=== PATIENT | female | born 1985 | race Caucasian/White ===

== ENCOUNTER 2019-09-05 13:17 | Emergency (ER) | payer SELFPAY ==
[~2019-09-05] VITALS: Ht 165.1 cm; Wt 77.1 kg
[~2019-09-05 13:17] MED LIST: IBUPROFEN200 MG NG; LEVAQUIN500 MG PO; NORCO 5-325 TA1 EACH PO; OMEPRAZOLE20 MG PO
[2019-09-05] MEDS ORDERED: NORCO 5-325 TA1 EACH PO (15:26)
== END 2019-09-05 15:40 | disposition home or self-care (01) ==
LOC: ED 13:17
DX: N93.8 Other specified abnormal uterine and vaginal bleeding (principal); R07.89 Other chest pain; F17.210 Nicotine dependence, cigarettes, uncomplicated; Z88.0 Allergy status to penicillin
CPT/HCPCS: 71046; 80048; 81001; 84703; 85025; 99284-25

== ENCOUNTER 2020-05-17 17:06 | Observation (INO) | payer OTHER ==
[~2020-05-17] VITALS: Ht 165.1 cm; Wt 77.1 kg
--- NOTE | 2020-05-17 21:20 | NUR ---
PT ARRIVED VIA STRETCHER FROM ER FOR ADMIT TO ROOM [address] CHARLES, PT ABLE TO TRANSFER TO BED WITHOUT DIZZINESS, VAGINAL BLEEDING SCANT. NOTED SL X 2, RIGHT AND LEFT LOWER FOREARM.
--- NOTE | 2020-05-17 21:25 | NUR ---
HEMOGRAM DRAWN PER RN FROM RIGHT UNUSED SL AFTER 7ML WASTE, SL FLUSHES WELL AFTER BLOOD DRAWN, SITE INTACT.
--- NOTE | 2020-05-17 21:39 | NUR ---
HEMOGRAM RESULTS CALLED TO DR CHARLES, ORDERS RECEIVED TO REPEAT HEMOGRAM AT 0100 ON 05/18/20.
--- NOTE | 2020-05-17 22:15 | NUR ---
SCDS PLACED ON PT PER ORDER
--- NOTE | 2020-05-17 22:35 | NUR ---
PT MEDICATED PER REQUEST FOR FRONTAL HEADACE 01/20 WITH FENTANYL 50 MCG IV AND PHENERGAN 12.5 MG IV PER ORDER OF DR CHARLES, PT RESTING QUIETLY, REQUESTED TO CALL FOR ASSIST GETTING UP OUT OF BED, PT AGREES.
--- NOTE | 2020-05-17 22:35 | NUR ---
CORREEDCTION TO PREVIOUS ENTRY AT THIS TIME, FENTANYL AND PHENERGAN NOT GIVEN AT THIS TIME, PLEASE SEE CORRECTED NOTE.
--- NOTE | 2020-05-17 22:55 | NUR ---
PT MEDICATED WITH FENTANYL 50 MCG IV AT THIS TIME PER ORDER FOR C/O HEADACHE 01/20
--- NOTE | 2020-05-17 23:05 | NUR ---
PT MEDICATED WITH PHENERGAN 12.5MG SLOW IV PER ORDER OF DR CHARLES AND AGREEMENT OF PATIENT. IV SITE INTACT.
--- NOTE | 2020-05-18 01:15 | NUR ---
HEMOGRAM DRAWN PER RN PER RIGHT HAND SL, 5 ML OF BLOOD WASTED PRIOR TO SAMPLE COLLECTION.
--- NOTE | 2020-05-18 01:40 | NUR ---
REPORT RECEIVED FROM LAB ON HEMOGRAM, WBC 6.6, HGB 9.0, HCT 26.9, PLATLETS 119, RESULTS CALLED TO DR CHARLES, ORDERS RECEIVED FOR REPEAT HEMOGRAM AT 0600. UPDATED ON PT'S TEMP OF 99.9, PLAN TO MONITOR.
--- NOTE | 2020-05-18 02:35 | NUR ---
CORRECTION TO PREVIOUS NOTE MADE AT THIS TIME, PT NOT MEDICATED WITH FENTANYL AND PHENERGAN AT THIS TIME
--- NOTE | 2020-05-18 02:56 | NUR ---
PT RETURNED TO BED FROM VOIDING 500ML YELLOW URINE, NO REPORTS OF DIZZINESS WITH AMBULATION.
--- NOTE | 2020-05-18 02:57 | NUR ---
BP RECHECKED WITH PT TILTED TOWARD BACK, PT C/O POUNDING HEADACHE, REQUESTING MEDICATION, IV PATENT, VAGINAL BLEEDING SCANT, PERIPAD CHANGED, SIGN OTHER REMAINS ASLEEP ON COUCH.
--- NOTE | 2020-05-18 03:00 | NUR ---
REPORT GIVEN TO MARVEL RN, MARVEL STEVENS TO ASSUME CARE OF PT.
--- NOTE | 2020-05-18 03:38 | NUR ---
0335- PT MEDICATED WITH 50MCG fENTANYL AND 12.5MG PHENERGAN FOR C/O FRONTAL BASS 11/19
--- NOTE | 2020-05-18 04:07 | NUR ---
0407-pt resting, eyes closed after IV pain meds
--- NOTE | 2020-05-18 05:01 | NUR ---
Pt awake to nurse voice at bedside for vitals. Pt reports that her BASS has gone away. Pt goes back to resting eyes after vitals obtained.
--- NOTE | 2020-05-18 05:10 | OBS ---
[facility] [address], [place] [address] Signed DATE OF SERVICE: 05/17/20 HISTORY OF PRESENT ILLNESS: The patient is a 34-year-old female, 2, para 1, with an LMP in March, who presented to the emergency room this evening with heavy vaginal bleeding and clotting. The patient was hypotensive on arrival, but responded well to fluid resuscitation. She reports daily spotting and bleeding since her last period. She never considered she could be as a possibility. She was using no control. She has had some mild cramping over the last two months, but had severe cramping with the heavy bleeding. She reports that she currently is without insurance, which has kept her from using any control or seeking any care til now. REVIEW OF SYSTEMS: Otherwise negative except for the history of present illness. PAST SURGICAL HISTORY: in 2005. ILLNESSES: Positive for history of UTIs and kidney infection. Positive for mild anxiety. Positive for a history of ulcers and gastritis. Negative for hypertension, diabetes, murmur, asthma, liver problems, or migraines. HABITS: Negative for tobacco. Positive for occasional ETOH. Uses marijuana twice weekly. MEDICATIONS: Aspirin and ibuprofen for headaches as needed. ALLERGIES: Penicillin. PHYSICAL EXAMINATION: VITAL SIGNS: Blood pressure is 111/83, pulse 120. She is afebrile. GENERAL: She is a well-developed, well-nourished female, in no acute distress. She is alert and oriented. Affect is pleasant. HEART: Regular rate and rhythm without murmur. LUNGS: Clear. ABDOMEN: With active bowel sounds, soft. There is a palpable mass which is approximately 16 weeks size, which is firm and nontender. On pelvic exam, there is only a small amount of blood on her pad at this time. Bimanual not repeated. LABORATORY DATA: H and H was 10.5 and 31.1. Platelets were 297, WBCs 9.7. Chem panel normal. An Electronically Signed By: SYEDA MLILER MD 05/18/20 0510 PATIENT NAME: GUZMAN MEAD OBSERVATION NOTE DATE OF : [birth year] REPORT #: [id number] PHYSICIAN: SYEDA MILLER MD PCP: NO PRIMARY CARE PHYSICIAN REPORT IS CONFIDENTIAL AND NOT TO BE RELEASED WITHOUT AUTHORIZATION [facility] [address], [place] [address] Signed ultrasound revealed a live at 10 weeks with a large fibroid approximately 10 cm at the fundus. IMPRESSION: A 34-year-old female, 2, para 1, now at approximately 10 weeks gestation with a history of severe bleeding, though currently improved. I suspect she will go on to lose this and given the gestation, will need D and C to assure completion of the miscarriage. There is a small chance, however, that the may continue. I think close observation is the safest given the amount of bleeding thus far. The patient also has a uterine fibroid which is fairly large. She also has a history of marijuana use. PLAN: Admit to obs. Continue n.p.o., IV fluids, serial H and H. Syeda Miller MD PJW/MODL /[id number] Copies: ~ Electronically Signed By: SYEDA MILLER MD 05/18/20 0510 PATIENT NAME: GUZMAN MEAD OBSERVATION NOTE DATE OF : [birth year] REPORT #: [id number] PHYSICIAN: SYEDA MILLER MD PCP: NO PRIMARY CARE PHYSICIAN REPORT IS CONFIDENTIAL AND NOT TO BE RELEASED WITHOUT AUTHORIZATION
--- NOTE | 2020-05-18 06:32 | NUR ---
reviews labs and orders an ultrasound to be done.
--- NOTE | 2020-05-18 06:57 | NUR ---
US AT BEDSIDE ALONG WITH DR CHARLES. VIABLE FETUS OBSERVED. ORDERS FOR REPEAT LABS LATER THIS MORNING AND PT MAY HAVE A REGULAR DIET.
--- NOTE | 2020-05-18 07:01 | NUR ---
0700- PT UP TO BR AND VOIDS QS, PINK TINGED URINE.NO CLOTS
--- NOTE | 2020-05-18 07:32 | NUR ---
Dr Mliler on unit. MD aware of vitals and continued c/o headache, no new orders recd at this time. Breakfast ordered.
--- NOTE | 2020-05-18 09:02 | NUR ---
Pt resting in bed with eyes closed, pt opens eyes when this RN enters the room. Pt continues to c/o a headache. Pt reports using the restroom, denies any diziness with ambulation. Breakfast tray cleared. No further needs voiced.
--- NOTE | 2020-05-18 10:09 | NUR ---
LAB AT BEDSIDE FOR 1000 HEMOGRAM DRAW.
--- NOTE | 2020-05-18 10:56 | NUR ---
PT SLEEPING, WAKES WHEN RN SPEAKS TO HER. PT CONTINUES TO C/O OF HEADACHE RATING IT 8/10.
--- NOTE | 2020-05-18 11:03 | NUR ---
T/C to Dr Clifford MD updated on 1000 hemogram results, no new orders recd at this time.
--- NOTE | 2020-05-18 12:32 | NUR ---
PT SLEEPING, DID NOT DISTURB.
--- NOTE | 2020-05-18 13:15 | NUR ---
DR CHARLES AT PT'S BEDSIDE, DISCHARGE ORDERS RECD.
== END 2020-05-18 13:30 | disposition home or self-care (01) ==
LOC: ED 17:06 → FBC 17:07
PROVIDERS: ADMIT Obstetrics & Gynecology; ATTEND Obstetrics & Gynecology
DX: O20.0 Threatened abortion (principal); I95.9 Hypotension, unspecified; D64.9 Anemia, unspecified; Z88.0 Allergy status to penicillin; D25.9 Leiomyoma of uterus, unspecified; R51.9 Headache, unspecified; Z3A.10 10 weeks gestation of pregnancy; Z20.822 Contact with and (suspected) exposure to COVID-19
CPT/HCPCS: 36415; 76801; 76815; 80048; 84702; 84703; 85025; 85027; 86850; 86900; 86901; 96374; 96375; 96376; 99285-25; C9803; G0378; J2550; J3010; J7030; J7121; U0003

== ENCOUNTER 2020-09-29 07:00 | Day surgery (SDC) | payer OTHER ==
[~2020-09-29] VITALS: Ht 165.1 cm; Wt 90.9 kg
[~2020-09-29 07:00] MED LIST changes: +ADVIL200 M1 PO; +IRON325 M1 PO; +MAG-OXIDE400 MG PO; +PRENATA CHEWAB1 EACH PO; +TYLENOL325 MG PO
[2020-09-29] MEDS ORDERED: CLEOCIN HCL300 MG PO (07:56)
--- NOTE | 2020-09-29 08:28 | NUR ---
PT IN DARKENED RM. ALERT ORIENTED AND SUPPORTED BY HER B.FRIEND JASPREET. PT SEEMS A LITTLE ANXIOUS, JASPREET WILL LEAVE, WOULD LIKE A CALL WHEN TIME FOR DC. HILDA SARABIA IN TO CONTINUE PREP, GAVE BLESSING. ALSO GAVE UPDATED CONTACT INFO TO HILDA LEA. SHE ENTERED IN PTS' CHART.
--- NOTE | 2020-09-29 08:47 | NUR ---
COOL WASH CLOTH TO FOREHEAD PER REQUEST AND PT REPORTS SMALL AMOUNT OF NAUSEA. PT REPORTS 8/10 CRAMPING UPPER ABD PAIN, RN WILL NOTIFY HARRIS CUELLAR.
--- NOTE | 2020-09-29 11:58 | NUR ---
09/29/20 1158 Kate Roman 1152-PATIENT ARRIVED TO PACU ON 6L MASK NONAROUSABLE RR EVEN. SR. IVF INFUSING. 3LAP SITES TO ABDOMEN BANDAIDS CDI. EPPERSON CATHETER DRAINING YELLOW URINE. 1156-PATIENT AROUSING TO VERBAL STIMULI OPENING EYES. PATIENT VERY DROWSY NOT RESPONDING TO QUESTIONS DOZES BACK TO SLEEP.
--- NOTE | 2020-09-29 12:43 | NUR ---
1235 PT ARRIVED TO PACU ONM RA, PT ASLEEP AND WAKES EASILY TO VERBAL STIMULI. VSS. PT DENEIS PAIN AND NAUSEA. PT RESTING WITH CALL LIGHT WITHIN REACH. PLAN OF CARE DISCUSSED. 1240 MD AT BEDSIDE TALKED TO PT.
--- NOTE | 2020-09-29 13:44 | NUR ---
EXPLAINED IS TO PT. TOO SLEEPY
--- NOTE | 2020-09-29 14:00 | NUR ---
PATIENT APPEARS AWAKE, REQUESTING PHONE FROM BACK PACK. REPORTS PAIN WELL CONTROLLED. RAISED PATIENT IN BED AND PROVIDED SNACK. PATIENT REPORTS PAIN INCREASING. ENCOURAGED PATIENT TO EAT AND DRINK BEFORE ADMINISTRATION OF PAIN MEDICAITON TO MAKE SURE WOULD SIT WELL ON STOMACH.
--- NOTE | 2020-09-29 14:16 | NUR ---
PATIENT AWAKE REPORTS PAIN 7/10 TO ABDOMEN, REPORTS 6 IS A TOLERABLE LEVEL. DENIES PAIN OR NAUSEA. RR EVEN. PATIENT HAS EATEN CRACKERS AND APPLESAUCE. CALL LIGHT WITHIN REACH. PATIENT MEDICATED PER EMAR.
--- NOTE | 2020-09-29 14:33 | NUR ---
1430-PATIENT AWAKE DENIES NAUSEA REPORTS PAIN HAS DECREASED TO 4. EPPERSON CATHETER EMPTIED 200MLS YELLOW URINE. PATIENT REPORTS " TOLERABLE LEVEL OF PAIN IS 5". EPPERSON CATHETER REMOVED. 10CC SALINE.
--- NOTE | 2020-09-29 14:59 | NUR ---
7425-PATIENT SAT UP ON SIDE OF BED TEARFUL. PATIENT REPORTS "TEARFUL DUE TO UTERUS BEING GONE" PATIENT UP TO BATHROOM SBA VOIDED 25 ML YELLOW URINE. [place] PAD PLACED SMALL AMT OF DRAINAGE. PATIENT REPOSITIONED BACK IN BED AND EDUCATED ABOUT IS AND DEMONSTRATED. SCDS ON AND RESTING IN BED. CALL LIGHT WITHIN REACH
--- NOTE | 2020-09-29 15:06 | NUR ---
1505- MERIDA AT BEDSIDE TALKING TO PATIENT
--- NOTE | 2020-09-29 15:23 | NUR ---
1520-PATIENT AWAKE CONTINUES TO HAVE PAIN 6/10 MEDICATED PER EMAR. PATIENT GIVEN ICE PACK AND WATER. BOYFRIEND AT BEDSIDE GIVEN PRESCRIPTION FOR NORCO AND MOTRIN TO GO FILL.
--- NOTE | 2020-09-29 15:47 | NUR ---
1545-PATIENT UP TO BATHROOM VOIDED 100 MLS YELLOW URINE. PATIENT REPORTS "PAIN IS BETTER" REPORTS "READY TO GO HOME" DISCUSSED WITH PATIENT ABOUT USING CALL LIGHT WHEN BOYFRIEND RETURNS TO [place] HOME.
--- NOTE | 2020-10-05 17:32 | PATH ---
[facility] [address], [place] [address] Signed SPECIMEN(S): A CERVIX, UTERUS, TUBES FIBROIDS SPECIMEN SOURCE: A. CERVIX, UTERUS, TUBES FIBROIDS CLINICAL HISTORY: Intramural leiomyoma of uterus, abnormal uterine bleeding. FINAL PATHOLOGIC DIAGNOSIS: Uterus, cervix, and bilateral fallopian tubes, hysterectomy and bilateral salpingectomy: - Cervix: No histopathologic abnormality. - Endometrium: Proliferative endometrium. - Myometrium: Leiomyomas (2.2 cm in greatest dimension). - Serosa: No histopathologic abnormality. - Fallopian tubes: Adenomatoid tumor (2 mm), paratubal cysts. - No evidence of malignancy. COMMENT: The leiomyomas are mitotically active and cellular, with up to 5 mitoses seen per high-powered field. An area of ischemic type necrosis is present in one of the leiomyomas, however no tumor necrosis or cellular atypia is identified. Within one of the fallopian tubes is a well circumscribed proliferation of benign appearing tubules within fibrous stroma. Immunohistochemical stains (with appropriately staining controls) were performed. The cells are positive for Calretinin and WT1, confirm mesothelial origin. 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 As part of [facility]' Quality Improvement Program, this case was reviewed by another member of our pathology staff. NAL:cml:C2NR MICROSCOPIC EXAMINATION: Histologic sections of all submitted blocks are examined by light microscopy. These findings, together with the gross examination, support the pathologic diagnosis. GROSS DESCRIPTION: The specimen, labeled "SK, cervix, uterus, tubes and fibroid," is received in formalin and consists of fragmented uterus that aggregate measures 15.5 x 9.5 x PATIENT NAME: GUZMAN MEAD PATHOLOGY DATE OF : [birth year] REPORT #: [id number] PHYSICIAN: CHATA PATHOLOGY PCP: NO PRIMARY CARE PHYSICIAN REPORT IS CONFIDENTIAL AND NOT TO BE RELEASED WITHOUT AUTHORIZATION [facility] [address], [place] [address] Signed 4.3 cm. Serosal surface is pink-collado, smooth. The ectocervix measures 3.5 x 4.1 cm. It is pink-collado, focally congested. The uterus fragments together weigh 231 g. Sectioning through the cervix reveals pink-collado homogenous tissue. The endometrium is pink-collado, smooth. Sectioning through myometrium reveals two white, firm, well-defined nodules that measure 0.5 and 0.6 cm in greatest dimension. Sectioning through myometrium reveals ill-defined white-pink nodule that measures 1.5 cm in greatest dimension. It also shows a possible nodule that shows yellow-collado discoloration and measures 2.2 cm in greatest dimension. The remaining of the myometrium shows trabeculated surface. The myometrium measures 1.7 cm in thickness. The endometrium measures 0.1 cm in thickness. from the uterine fragments, within the container are two undesignated fallopian tubes. Both of them show fimbria and violaceous and smooth serosa. First fallopian tube measures 4.5 cm in length and 0.7 cm in diameter. Second fallopian tube measures 5.5 cm in length and 0.7 cm in diameter. Sectioning through both fallopian tubes is grossly unremarkable. Cassette summary: (A1) Cervix, loan servicing representative sections (A2) Endomyometrium, loan servicing representative sections (A3) Two well-defined and one ill-defined nodule, loan servicing representative sections (A4) Possible nodule, loan servicing representative section (A5) First fallopian tube, loan servicing representative sections (A6) Second fallopian tube, loan servicing representative sections JS (under the direct supervision of a pathologist) The Gross Description was prepared using a voice recognition system. The report was reviewed for accuracy; however, sound-alike word errors, addition and/or deletions may occur. If there is any question about this report, please contact Client Services. ADDITIONAL NOTES: Immunohistochemical and/or in situ hybridization studies were performed on this case with the appropriate positive controls that react as expected. This test was developed and its performance characteristics determined by [facility]. It has not been cleared or approved by the U.S. Food and Drug Administration. The FDA has determined that such clearance or approval is not necessary. This test is used for clinical purposes. It should not be regarded as investigational or for research. [facility] is certified under the Clinical Laboratory Improvement PATIENT NAME: GUZMAN MEAD PATHOLOGY DATE OF : [birth year] REPORT #: [id number] PHYSICIAN: CHATA PATHOLOGY PCP: NO PRIMARY CARE PHYSICIAN REPORT IS CONFIDENTIAL AND NOT TO BE RELEASED WITHOUT AUTHORIZATION [address] [address] Signed Amendments of 1988 (CLIA) as qualified to perform high complexity clinical laboratory testing. This assay has not been validated for specimens that have been decalcified. PERFORMING LABORATORY: The technical component was performed by [facility], [address] [place] [id number] (Circulation Representative: Sarah Silvestre MD; CLIA# [id number]). Professional interpretation was performed by [facility], [facility], [address] [place] [address] (CLIA# [id number]). Diagnostician: Daily Pierce MD Pathologist Electronically Signed 10/05/2020 Copies: ~ PATIENT NAME: GUZMAN MEAD PATHOLOGY DATE OF : [birth year] REPORT #: [id number] PHYSICIAN: CHATA PATHOLOGY PCP: NO PRIMARY CARE PHYSICIAN REPORT IS CONFIDENTIAL AND NOT TO BE RELEASED WITHOUT AUTHORIZATION
--- NOTE | 2020-10-06 22:23 | OR ---
[facility] [address], [place] [address] Signed DATE OF OPERATION: 09/29/2020 SURGEON: Jorge A Stokes DO PREOPERATIVE DIAGNOSES: 1. Fibroid uterus (large). 2. Abnormal uterine bleeding. POSTOPERATIVE DIAGNOSES: 1. Fibroid uterus (large). 2. Abnormal uterine bleeding. PROCEDURES PERFORMED: 1. Total laparoscopic hysterectomy of large uterus with fibroid utilizing the excite technique. 2. Bilateral salpingectomy. 3. Cystoscopy. TRANSPORTATION SPECIALIST: Katrina Ames DO. ANESTHESIA: General. ESTIMATED BLOOD LOSS: 50 mL. SPECIMEN: Uterus with large fibroid, cervix, bilateral fallopian tubes. IMPLANTS: Mcfadden catheter to dependent drainage. FINDINGS: Normal external genitalia with normal clitoris, urethral meatus, bilateral [place]'s, and Bartholin's. Normal vagina with excellent apical support. Normal cervix. On laparoscopy, large fibroid uterus with likely degenerative changes were noted during extracorporeal morcellation. Normal fallopian tubes and ovaries bilaterally. On cystoscopy, normal urethra and bilateral ureteral jets. Electronically Signed By: JORGE A STOKES DO 10/06/20 2223 PATIENT NAME: GUZMAN MEAD OPERATIVE REPORT DATE OF : 83 REPORT #: [id number] PHYSICIAN: JORGE A STOKES DO PCP: NO PRIMARY CARE PHYSICIAN REPORT IS CONFIDENTIAL AND NOT TO BE RELEASED WITHOUT AUTHORIZATION [facility] [address], [place] [address] Signed COMPLICATIONS: None. INDICATIONS: Ms. Mead is a very pleasant 34-year-old white female with a large fibroid uterus with a fibroid measuring 10.9 x 6.5 x 7.5 cm. Unfortunately, this fibroid caused a recent complication of , and the patient underwent medically indicated with [facility] in [place]. Since the patient has developed worsening abnormal bleeding and she desires to proceed with definitive treatment with total laparoscopic hysterectomy. Risks, benefits, and alternatives were discussed in detail with the patient. The patient understands and wished to proceed with the procedure. TECHNIQUE: The patient was taken to the operating room. A time-out was performed to confirm correct patient, correct procedure. General anesthesia was adequately established. The patient was prepped and draped in dorsal lithotomy position with feet in Yellofin stirrups. ICPs were on running. The patient received clindamycin 900 mg and aztreonam 2 g IV due to penicillin allergy. No heparin was indicated. A Mcfadden catheter was inserted. A weighted speculum was placed in the vagina and the anterior lip of the cervix grasped with an Allis clamp. The cervix was serially dilated using Hegar dilators and a VCare uterine manipulator was placed without difficulty. The surgeon's gloves were changed and attention was turned to the abdomen. The 2 cm below the umbilicus, a 4 cm curvilinear incision was made after injection with local anesthetic with epinephrine. The fascia was grasped with hemostats, elevated, and entered sharply. The fascia was tagged with sutures of 0 Vicryl and the peritoneum was entered bluntly. A Bill trocar was then placed and pneumoperitoneum was established. Survey of the abdomen and pelvis was performed demonstrating a right abnormal right upper quadrant, stomach and the pelvis. Large fibroid uterus. Normal fallopian tubes and ovaries. It was felt that this would be able to be accomplished laparoscopy and procedure continued. A 5 mm assist port was placed in left lower quadrant under direct visualization. An 8 mm expanding assist port was placed in the right abdomen under direct visualization without complication. The left fallopian tube was grasped at the fimbriated end, elevated, and divided along the mesosalpinx using the LigaSure device. The tube was amputated at the cornu and delivered through the trocar and sent to pathology for further evaluation. The right utero-ovarian ligament was fulgurated and divided with excellent hemostasis. The right round ligament was fulgurated and divided, and the leaves of the broad ligament were dissected. The process was repeated on the left side without difficulty. The fibroid was quite large and on the left midportion of the uterus. Careful dissection was performed along the posterior leaf of the broad ligament to the uterosacral ligaments and the peritoneum was dissected off the cervix posteriorly. The bladder flap was then created and pushed well below the vaginal cup. The left uterine vessels were fulgurated and divided with excellent hemostasis. The Electronically Signed By: JORGE A STOKES DO 10/06/20 2223 PATIENT NAME: GUZMAN MEAD OPERATIVE REPORT DATE OF : [birth year] REPORT #: [id number] PHYSICIAN: JORGE A STOKES DO PCP: NO PRIMARY CARE PHYSICIAN REPORT IS CONFIDENTIAL AND NOT TO BE RELEASED WITHOUT AUTHORIZATION [facility] [address], [place] [address] Signed process was repeated on the right with uterine vessels fulgurated and divided with excellent hemostasis. The uterus was blanched and decision was made to proceed with Sonicision colpotomy at 6 o'clock and followed the green edge of the cup in a clockwise manner to 12 o'clock. The process was repeated from 6 o'clock in a counter-clockwise manner to the 12 o'clock, amputating the uterus and cervix from the vagina. The cervix and uterus were then placed into the upper abdomen and the VCare uterine manipulator was removed. The vagina was stuffed with a wet lap in a glove to maintain pneumoperitoneum. Attention was then turned back to the abdomen. The cervix and uterus were placed back into the pelvis and a 15 EndoCatch bag was placed into the pelvis, carefully inserting the uterus and cervix into the bag. The bag was then brought through the umbilical port with excellent containment. An Larry O ring was then placed to hold the bag in place. The pneumoperitoneum was reduced and the uterus was morcellated in a contained extra corporal manner utilizing the excite technique with an #11 blade. Degenerative changes were noted of the fibroid. Once the uterus and fibroid were delivered through the umbilical incision. The 15 bag was removed and the Bill port was replaced. Attention was then turned to repair of the colpotomy. The edges of the vagina were grasped and reapproximated using Endostitch device with V-Loc suture with careful attention to incorporate the uterosacral ligaments and the vaginal epithelium with each bite. Excellent closure was noted with excellent apical support. A small amount of oozing was noted in the right broad ligament, this was carefully evaluated and made hemostatic with a LigaSure device. The pedicles and the broad ligament with excellent hemostasis noted. The pneumoperitoneum was reduced and hemostasis again was noted. Trocars were removed. Umbilical fascia was repaired using 0 Vicryl in a running nonlocked manner. Trocar sites were repaired using 4-0 Monocryl with excellent hemostasis and cosmesis. Attention was then turned to cystoscopy. The Mcfadden catheter was removed. A 7-degree cystoscope was placed in the urethral meatus and advanced under direct visualization into the bladder. Normal bladder, urethra, and bilateral ureteral jets were appreciated. The bladder was drained. Mcfadden catheter was reinserted. The patient was taken to PACU in good and stable condition. Sponge, needle, instrument count were correct x2 at the end the procedure. Dr. Ames was present and participated in all portions of the procedure. Jorge A Stokes DO JDW/MODL /[id number] Electronically Signed By: JORGE A STOKES DO 10/06/202222 PATIENT NAME: GUZMAN MEAD OPERATIVE REPORT DATE OF : [birth year] REPORT #: [id number] PHYSICIAN: JORGE A STOKES DO PCP: NO PRIMARY CARE PHYSICIAN REPORT IS CONFIDENTIAL AND NOT TO BE RELEASED WITHOUT AUTHORIZATION [facility] [address] [place] [address] Signed Copies: ~ Electronically Signed By: JORGE A STOKES DO 10/06/20 2223 PATIENT NAME: GUZMAN MEAD OPERATIVE REPORT DATE OF : [birth year] REPORT #: [id number] PHYSICIAN: JORGE A STOKES DO PCP: NO PRIMARY CARE PHYSICIAN REPORT IS CONFIDENTIAL AND NOT TO BE RELEASED WITHOUT AUTHORIZATION
== END 2020-09-29 16:32 | disposition home or self-care (01) ==
LOC: DS 07:00
PROVIDERS: ATTEND Obstetrics & Gynecology
PROC: 0UT94ZZ Resection of Uterus, Percutaneous Endoscopic Approach (ICD-10-PCS; principal; 2020-09-29 08:30)
DX: D25.1 Intramural leiomyoma of uterus (principal); D28.2 Benign neoplasm of uterine tubes and ligaments; N93.9 Abnormal uterine and vaginal bleeding, unspecified
CPT/HCPCS: 00840; 86850; 86900; 86901; 88307; 88341; 88342; J0131; J0330; J1100; J1885; J2250; J2405; J2704; J3010; J3475; J3490; J7121

== ENCOUNTER 2021-08-05 19:15 | Emergency (ER) | payer OTHER ==
[~2021-08-05] VITALS: Ht 165.1 cm; Wt 96.5 kg
[~2021-08-05 19:15] MED LIST changes: +CLEOCIN HCL300 MG PO
[2021-08-05] MEDS ORDERED: BUTALB-ACETAMI1 EAC2 PO (21:26)
== END 2021-08-05 21:38 | disposition home or self-care (01) ==
LOC: ED 19:15
DX: R51.9 Headache, unspecified (principal); Z88.0 Allergy status to penicillin; Z79.899 Other long term (current) drug therapy
CPT/HCPCS: 96374; 96375; 99283-25; J1200; J1885; J2765; J7030

== ENCOUNTER 2023-10-05 21:27 | Emergency (ER) | payer OTHER ==
[~2023-10-05] VITALS: Ht 160 cm; Wt 86.3 kg
[~2023-10-05 21:27] MED LIST changes: +BRAIN MIGHT-DH1 EACH PO; +BUSPIRONE HCL5 MG PO; +BUTALB-ACETAMI1 EAC2 PO; +FLOVENT DISKU250 MCG INH; +FLOVENT HFA10.6 GM INH; +HYDROCODON-ACE1 EA10 PO; +HYDROCODON-ACE1 EA11 PO; +LEVOFLOXACIN500 MG PO; +MONTELUKAST SOD10 MG PO; +PREDNISONE20 MG PO; +SERTRALINE HCL100 MG PO; +SUMATRIPTAN SUC25 MG PO; +TOPIRAMATE50 MG PO; +VENTOLIN HFA18 GM INH; +VIT C-ECHINACE1 EACH PO; +VITAMIN D350 MCG PO; +ZITHROMAX250 MG PO
--- OUTSIDE RECORDS SUMMARY | 2023-10-05 21:30 | XMS ---
PreManage Notification: GUZMAN MEAD Security Collateral Analyst Events No recent Security Events currently on file CRITERIA MET - [facility] - [facility] - 2 Visits in 30 Days CARE PROVIDERS -, [facility] Dentist: Poultry Trimmer [facility] PHONE: [phone] -, Toby- Dentist: Poultry Trimmer [facility] PHONE: [phone] [facility]: [facility] Current \F\ [facility] PHONE: [phone] Serena has no Care Guidelines for this patient. E.D. VISIT COUNT (12 MO.) [address] [facility] TOTAL 5 NOTE: Visits indicate total known visits. ED/UCC VISIT TRACKING (12 MO.) 10/05/2023 21:27 [facility] [place] TYPE: Emergency COMPLAINT: - DIFFICULTY BREATHING 09/07/2023 17:04 [facility] [place] TYPE: Emergency COMPLAINT: - RT FOOT PAIN DIAGNOSES: - Fall on same level from slipping, tripping and stumbling without subsequent striking against object, initial encounter - Nondisplaced fracture of fifth metatarsal bone, right foot, initial encounter for closed fracture - Pain in right foot 09/02/2023 21:42 [facility] [place] TYPE: Emergency COMPLAINT: - SHORTNESS OF BREATH DIAGNOSES: - Allergy status to penicillin - Elevated white blood cell count, unspecified - intermission coordinator (current) use of inhaled steroids - Other emt intermediate (current) drug therapy - Shortness of breath - Unspecified asthma with (acute) exacerbation 07/26/2023 18:33 [facility] [place] TYPE: Emergency COMPLAINT: - SOB DIAGNOSES: - Allergy status to penicillin - Cough, unspecified - Other mcfp (current) drug therapy - Unspecified asthma with (acute) exacerbation 02/09/2023 10:22 [facility] [place] TYPE: Emergency COMPLAINT: - SOB INPATIENT VISIT TRACKING (12 MO.) 02/09/2023 14:[address] [facility] [place] TYPE: Medical Surgical COMPLAINT: - AHRF, ASTHMA EXABERBATION DIAGNOSES: - Acquired absence of both cervix and uterus - Acquired absence of both cervix and uterus - Acute respiratory failure with hypoxia - Allergy status to penicillin - Allergy status to penicillin - Anxiety disorder, unspecified - Anxiety disorder, unspecified - Contact with and (suspected) exposure to COVID-19 - Contact with and (suspected) exposure to COVID-19 - Eosinophilic asthma - Eosinophilic asthma - residential (current) use of inhaled steroids - residential (current) use of inhaled steroids - Migraine, unspecified, not intractable, without status migrainosus - Migraine, unspecified, not intractable, without status migrainosus - Other emt intermediate (current) drug therapy - Other mcfp (current) drug therapy - Other specified postprocedural states - Other specified postprocedural states - Personal history of other diseases of the digestive system - Personal history of other diseases of the digestive system - Unspecified asthma with (acute) exacerbation - Unspecified asthma with (acute) exacerbation - Unspecified asthma, uncomplicated [email or web address]
[2023-10-05] MEDS ORDERED: methylPREDNISolone SOD SUCC 125 MG/2 ML VIAL IM ONE (21:45)
[2023-10-05] MEDS ORDERED: ALBUTEROL/IPRATROPIUM 3 ML NEB INH ONE (21:45)
[2023-10-05] MEDS ORDERED: methylPREDNISolone 4 MG HOME.PACK PO ONE (22:00)
[2023-10-05 22:12] VITALS: BP 106/79
== END 2023-10-05 22:11 | disposition home or self-care (01) ==
LOC: ED 21:27
DX: J45.901 Unspecified asthma with (acute) exacerbation (principal); Z88.0 Allergy status to penicillin; Z79.51 Long term (current) use of inhaled steroids; Z79.899 Other long term (current) drug therapy
CPT/HCPCS: 71045; 94640; 96372; 99285-25; J2919

== ENCOUNTER 2024-01-17 06:28 | Day surgery (SDC) | payer OTHER ==
[~2024-01-17] VITALS: Ht 160 cm; Wt 90.9 kg
[~2024-01-17 06:28] MED LIST changes: +ALLERGY RELIEF10 MG PO; -BRAIN MIGHT-DH1 EACH PO; +BUSPIRONE HCL7.5 MG PO; +FLUTICASONE-SA1 EAC3 INH; +FLUTICASONE-SA1 EAC5; +IBU-200200 MG PO; +LACTATED RINGER'S 1,000 ML IV SCH; +SPIRIVA RESPIMAT4 GM INH; -VIT C-ECHINACE1 EACH PO; +VITAMIN B121000 MCG PO; +VITAMIN C1000 MG PO
[2024-01-17 06:46] VITALS: BP 113/80
[2024-01-17] MEDS ORDERED: WIXELA 500-501 EACH PO (06:50)
[2024-01-17] MEDS ORDERED: LIDOCAINE HCL 1% 5 ML SDV INJ ONE (07:00)
[2024-01-17] MEDS ORDERED: CEFAZOLIN SODIUM 2 GM/20 ML SYR IV SCH (07:00)
[2024-01-17] MEDS ORDERED: IBLOOD GLUCOSE TEST STRIP 1 EA TEST VI PRN ×2 (07:00→08:00)
[2024-01-17] MEDS ORDERED: ondansetron HCL 4 MG/2 ML VIAL ONE (07:36)
[2024-01-17] MEDS ORDERED: LIDOCAINE HCL 0.5% 50 ML SDV ONE (07:36)
[2024-01-17] MEDS ORDERED: propofoL 200 MG/20 ML VIAL ONE ×3 (07:36→08:15)
[2024-01-17] MEDS ORDERED: KETOROLAC TROMETHAMINE 30 MG/ML VIAL ONE (07:36)
[2024-01-17] MEDS ORDERED: HYDROCODONE/ACETA 5/325 TAB PO PRN (07:45)
[2024-01-17] MEDS ORDERED: fentaNYL citrate 50 MCG/ML SDV IV PRN (08:00)
[2024-01-17] MEDS ORDERED: NALOXONE HCL 0.4 MG SYR IV PRN (08:00)
[2024-01-17] MEDS ORDERED: ondansetron HCL 4 MG/2 ML VIAL IV PRN (08:00)
[2024-01-17] MEDS ORDERED: HYDROCODON-ACE1 EA10 PO (08:27)
[2024-01-17 08:58] VITALS: BP 109/67
--- NOTE | 2024-01-17 09:20 | OR ---
[facility] [address], [place] [address] Signed DATE OF OPERATION: 01/17/2024 SURGEON: Eagle Murry MD PREOPERATIVE DIAGNOSIS: Carpal tunnel syndrome, right. POSTOPERATIVE DIAGNOSIS: Carpal tunnel syndrome, right. PROCEDURE PERFORMED: Right carpal tunnel release. GEOPHYSICAL LABORATORY SUPERVISOR: None. ANESTHESIA: Tanya block. TOURNIQUET TIME: 16 minutes. BRIEF HISTORY: Claire is a 38-year-old female with pain and numbness in her hand. Nerve conduction study was consistent with carpal tunnel. Risks and benefits of operative treatment were discussed with her and she elected to proceed. PROCEDURE IN DETAIL: Once consent was obtained, she was taken to the operating room. After adequate anesthesia, she was placed on the operating room table. All downside pressure points were well padded. The arm was prepped and draped in a standard sterile fashion. The carpal tunnel was approached through a 1.5 cm transverse incision in the distal wrist crease carried through the skin and subcutaneous tissue. Palmaris longus was retracted and protected. The transverse carpal ligament was identified under loupe magnification and was released proximally a cm and distally to its distal extent. Visualization of the nerve was undertaken. There was no injuries or compression to the nerve. The wound was palpated using the [place] and found to be completely released. The wound was then copiously irrigated with normal saline, closed with 3-0 nylon and injected with 6 mL of 0.25% plain Marcaine. The wound was closed with 3-0 Monocryl and Steri-Strips, not nylon. The wound was dressed with bacitracin, Adaptic, 4 x 8s, and gauze. She Electronically Signed By: EAGLE MURRY MD 01/17/24 0920 PATIENT NAME: CLAIRE MEAD OPERATIVE REPORT DATE OF : 83 REPORT #: [id number] PHYSICIAN: EAGLE MURRY MD PCP: BENJAMIN ESCOTO PA-C REPORT IS CONFIDENTIAL AND NOT TO BE RELEASED WITHOUT AUTHORIZATION [facility] [address] [facility] [place], [place] [address] Signed tolerated the procedure well. All sponge, needle, and instrument counts were correct. Eagle Murry MD BA/MODL /[id number] Copies: ~ Electronically Signed By: EAGLE MURRY MD 01/17/24 0920 PATIENT NAME: CLAIRE MEAD OPERATIVE REPORT DATE OF : 83 REPORT #: [id number] PHYSICIAN: EAGLE MURRY MD PCP: BENJAMIN ESCOTO PA-C REPORT IS CONFIDENTIAL AND NOT TO BE RELEASED WITHOUT AUTHORIZATION
== END 2024-01-17 09:21 | disposition home or self-care (01) ==
LOC: DS 06:28
PROVIDERS: ATTEND Specialist
PROC: 01N50ZZ Release Median Nerve, Open Approach (ICD-10-PCS; principal; 2024-01-17 08:05)
DX: G56.03 Carpal tunnel syndrome, bilateral upper limbs (principal); J45.909 Unspecified asthma, uncomplicated; Z88.0 Allergy status to penicillin; Z88.8 Allergy status to other drugs, medicaments and biological substances; Z79.899 Other long term (current) drug therapy
CPT/HCPCS: 01810; J0690; J1885; J2405; J2704; J7121

== ENCOUNTER 2024-02-25 23:19 | Emergency (ER) | payer OTHER ==
[~2024-02-25] VITALS: Ht 160 cm; Wt 91.8 kg
[~2024-02-25 23:19] MED LIST changes: -LACTATED RINGER'S 1,000 ML IV SCH; +WIXELA 500-501 EACH PO
[2024-02-26 01:55] VITALS: BP 115/74
== END 2024-02-26 02:04 | disposition home or self-care (01) ==
LOC: ED 23:19
DX: S01.551A Open bite of lip, initial encounter (principal); J45.909 Unspecified asthma, uncomplicated; Z87.11 Personal history of peptic ulcer disease; Z88.0 Allergy status to penicillin; Z79.899 Other long term (current) drug therapy; W54.0XXA Bitten by dog, initial encounter
CPT/HCPCS: 12011; 99282

== ENCOUNTER 2024-07-05 07:45 | Emergency (ER) | payer OTHER ==
[~2024-07-05] VITALS: Ht 160 cm; Wt 95.7 kg
[2024-07-05] MEDS ORDERED: ALBUTEROL/IPRATROPIUM 3 ML NEB INH ONE (08:15)
[2024-07-05] MEDS ORDERED: predniSONE 20 MG TAB PO ONE (08:15)
[2024-07-05] MEDS ORDERED: ACETAMINOPHEN 500 MG TAB PO ONE (08:15)
[2024-07-05] MEDS ORDERED: IBUPROFEN 600 MG TAB PO ONE (08:15)
[2024-07-05] MEDS ORDERED: ONDANSETRON 4 MG TAB ODT SL ONE (08:15)
[2024-07-05] MEDS ORDERED: HYDROCODONE/ACETA 7.5/325 TAB PO ONE (09:45)
[2024-07-05] MEDS ORDERED: ONDANSETRON ODT8 MG PO (10:24)
[2024-07-05] MEDS ORDERED: HYDROCODON-ACE1 EA10 PO (10:24)
[2024-07-05] MEDS ORDERED: SODIUM CHLORIDE 0.9% 1,000 ML IV ONE (10:45)
[2024-07-05] MEDS ORDERED: HYDROmorphone HCL 1 MG/ML SYR IV PRN (10:45)
[2024-07-05 11:14] LABS: BASOPHILS 0.4 % (0-2); EOSINOPHILS 0.4 % (0-6); HEMATOCRIT 39.5 % (35.0-50.0); HEMOGLOBIN 13.4 g/dL (12.0-18.0); LYMPHOCYTES 10.1 % (24-44); MCH 32.9 (27-36); MCV 96.8 fl (81-99); MONOCYTES 7.9 % (0-12); NEUTROPHILS 81.2 % (39-80); PLATELET COUNT 167 K/uL (140-440); RBC 4.08 M/ul (4.3-5.7); RDW 12.5 (10.5-15.0)
[2024-07-05 11:24] LABS: ALBUMIN 3.4 g/dL (3.4-5.0); ALBUMIN/GLOBULIN RATIO 1.13 (1.1-2.4); ANION GAP 15.1 (7-21); BILIRUBIN, TOTAL 0.2 mg/dL (0.2-1.0); BUN/CREATININE RATIO 8.95 (6.0-28.6); CALCIUM 8.4 mg/dL (8.5-10.1); CREATININE, SERUM 0.67 mg/dL (0.55-1.02); POTASSIUM 3.1 mmol/L (3.5-5.1); PROTEIN, TOTAL 6.4 g/dL (6.4-8.2)
[2024-07-05] MEDS ORDERED: PREDNISONE20 MG PO (13:28)
[2024-07-05 13:50] VITALS: BP 81/54
== END 2024-07-05 13:40 | disposition home or self-care (01) ==
LOC: ED 07:45
PROVIDERS: Emergency Medicine
DX: B34.9 Viral infection, unspecified (principal); J45.901 Unspecified asthma with (acute) exacerbation; Z88.0 Allergy status to penicillin; Z79.899 Other long term (current) drug therapy
CPT/HCPCS: 36415; 70450; 71045; 80053; 85025; 94640; 96374; 99285-25; A9270; J1171; J7030; J7512

== ENCOUNTER 2025-04-20 00:57 | Emergency (ER) | payer OTHER ==
[~2025-04-20] VITALS: Ht 160 cm; Wt 92.9 kg
--- OUTSIDE RECORDS SUMMARY | ~2025-04-20 | XMS | Continuity of Care Document ---
Demographics + + + | Address | [address] | | | [place] [address] | + + + | Preferred Language | Unknown | + + + | Marital Status | Never | + + + | Caodaism Affiliation | Unknown | + + + | Race | White | + + + | Ethnic Group | Not or | + + + Author + + + | Author | [facility] | + + + | Organization | [facility] | + + + | Address | [address] | | | [place] [address] | + + + | Phone | | + + + Care Team Providers + + + + | Care Cool Roofing Installer Name | Role | Phone | + + + + Unavailable | Unavailable | + + + + Allergies No information. Encounters No information. Functional Status No information. Immunizations No information. Medications + + + + | date | description | facility | + + + + | (no date) | CETIRIZINE HCL | [facility] | | | | [facility] | + + + + | (no date) | Fluticasone | [facility] | | | Propion/Salmeterol | [facility] | + + + + | (no date) | TOPIRAMATE | [facility] | | | | [facility] | + + + + | (no date) | TIOTROPIUM BROMIDE | [facility] | | | | [facility] | + + + + | (no date) | MAGNESIUM OXIDE | [facility] | | | | [facility] | + + + + | (no date) | ASCORBIC ACID | [facility] | | | | [facility] | + + + + | (no date) | MONTELUKAST SODIUM | [facility] | | | | [facility] | + + + + | (no date) | Fluticasone | [facility] | | | Propion/Salmeterol | [facility] | + + + + | (no date) | Cyanocobalamin (Vitamin | [facility] | | | B-12) | [facility] | + + + + | (no date) | FERROUS SULFATE | [facility] | | | | [facility] | + + + + | (no date) | IBUPROFEN | [facility] | | | | [facility] | + + + + | (no date) | Ibuprofen | [facility] | | | | [facility] | + + + + | (no date) | SUMATRIPTAN SUCCINATE | [facility] | | | | [facility] | + + + + | (no date) | CLINDAMYCIN HCL | [facility] | | | | [facility] | + + + + | (no date) | Cholecalciferol (Vitamin | [facility] | | | D3) | [facility] | + + + + | (no date) | ALBUTEROL SULFATE | [facility] | | | | [facility] | + + + + | (no date) | BUSPIRONE HCL | [facility] | | | | [facility] | + + + + | (no date) | BUSPIRONE HCL | [facility] | | | | [facility] | + + + + | (no date) | FLUTICASONE PROPIONATE 44 | [facility] | | | MCG | [facility] | + + + + Problems No information. Procedures No information. Results/Labs No information. Social History +--------+ + + | date | description | facility | +--------+ + + Vital Signs No information."
[~2025-04-20 00:57] MED LIST changes: +ONDANSETRON ODT8 MG PO
[2025-04-20] MEDS ORDERED: NUCALA100 MG/11 SQ (01:12)
[2025-04-20] MEDS ORDERED: ALBUTEROL/IPRATROPIUM 3 ML NEB INH ONE (01:30)
[2025-04-20 01:35] LABS: BASOPHILS 0.6 % (0.1-1.2); EOSINOPHILS 4.1 % (0.7-5.8); LYMPHOCYTES 25.8 % (19.3-51.7); MCH 32.6 PG (25.6-32.2); MCHC 34.4 g/dL (32.2-35.5); MCV 94.7 fL (79.4-94.8); MONOCYTES 8.9 % (4.7-12.5); NEUTROPHILS 60.4 % (34.0-71.1); RBC 3.96 M/uL (3.93-5.22)
[2025-04-20 01:57] LABS: ALT (SGPT) 30.0 U/L (14-59); AST (SGOT) 15.0 U/L (15-37); GLOMERULAR FILTRATION RATE,EST 114.0 mL/min (>60); PROTEIN, TOTAL 6.6 g/dL (6.4-8.2); UREA NITROGEN 13.0 mg/dL (7-18)
[2025-04-20 02:15] VITALS: BP 107/63
[2025-04-20] MEDS ORDERED: methylPREDNISolone 4 MG HOME.PACK PO ONE (02:15)
== END 2025-04-20 02:15 | disposition home or self-care (01) ==
LOC: ED 00:57
PROVIDERS: Emergency Medicine
DX: J45.901 Unspecified asthma with (acute) exacerbation (principal); Z79.51 Long term (current) use of inhaled steroids; Z79.899 Other long term (current) drug therapy; Z88.0 Allergy status to penicillin; Z91.013 Allergy to seafood
CPT/HCPCS: 36415; 71045; 80053; 85025; 94640; 96374; 99285-25; J2919